=== PATIENT | male | born 1990 | race Caucasian/White ===

== ENCOUNTER 2021-08-23 17:52 | Emergency (ER) | payer OTHER ==
[~2021-08-23] VITALS: Ht 165.1 cm; Wt 70.9 kg
[2021-08-23 17:52] VITALS: BP 122/57
[2021-08-23] MEDS ORDERED: LIDOCAINE 2% MDV 20ML VIAL SC ONE (19:25)
[2021-08-23] MEDS ORDERED: BACTRIM 160MG/800MG DS TAB PO ONE (19:25)
[2021-08-23] MEDS ORDERED: BACT800T5 PO (19:49)
== END 2021-08-23 19:59 | disposition home or self-care (01) ==
LOC: M ED 17:52
DX: L02.211 Cutaneous abscess of abdominal wall (principal)

== ENCOUNTER 2022-04-09 07:56 | Emergency (ER) | payer OTHER ==
[~2022-04-09] VITALS: Ht 165.1 cm; Wt 69.7 kg
[2022-04-09 07:56] VITALS: BP 140/78
[~2022-04-09 07:56] MED LIST: BACT800T5 PO
[2022-04-09] MEDS ORDERED: LIDOCAINE 2% MDV 20ML VIAL SC ONE (09:05)
[2022-04-09] MEDS ORDERED: BACTRIM 160MG/800MG DS TAB PO ONE (10:15)
[2022-04-09] MEDS ORDERED: BACT800T5 PO (10:18)
[2022-04-11] MEDS ORDERED: CLIN150C17 PO (08:43)
== END 2022-04-09 10:26 | disposition home or self-care (01) ==
LOC: M ED 07:56
DX: L02.511 Cutaneous abscess of right hand (principal); W60.XXXA Contact with nonvenomous plant thorns and spines and sharp leaves, initial encounter